=== PATIENT | female | born 1970 | race African-American/Black ===

== ENCOUNTER 2016-11-02 19:22 | Emergency (ER) | payer OTHER ==
[~2016-11-02 19:22] MED LIST: ALBU4TAB6 INH; ALPR2TAB2 PO; AZIT1PAC10 PO; BENZTROPINE; COGENTIN PO; CYMBALTA PO; FLUT1DIS3 IH; HYDR-519 PO; LISINOPRIL PO; MED4 PO; P20 PO; QVAR INHALER PO; RISPERIDONE PO; SANDOZ; TRAZ-132 PO
== END 2016-11-02 23:24 | disposition left against medical advice (07) ==
LOC: ER 23:19
DX: R56.9 Unspecified convulsions (principal); Z53.21 Procedure and treatment not carried out due to patient leaving prior to being seen by health care provider

== ENCOUNTER 2016-11-20 19:11 | Inpatient (IN) | payer OTHER ==
[~2016-11-20] VITALS: Ht 162.6 cm; Wt 136.1 kg
[2016-11-20 20:47] LABS: BASOPHILS % 0.6 % (0.0-2.0); EOSINOPHILS % 1.9 % (0.0-5.0); HEMATOCRIT. 36.5 % (36.0-48.0); HEMOGLOBIN. 11.6 g/dL (12.0-16.0); LYMPHOCYTES % 22.3 % (20.0-50.0); MEAN CORPUSCULAR HEMOGLOBIN 25.6 pg (28.0-32.0); MEAN CORPUSCULAR HGB CONC 31.9 g/dL (31.0-37.0); MEAN CORPUSCULAR VOLUME 80.5 fL (81.0-99.0); MONOCYTES % 6.2 % (2.0-8.0); PLATELET 356 x1000/uL (130-400); RED BLOOD CELL COUNT 4.53 mill/uL (4.2-5.4); RED CELL DISTRIBUTION WIDTH 15.8 % (11.6-14.6); WHITE BLOOD COUNT 11.8 x1000/uL (4.5-11.0)
[2016-11-20 20:59] LABS: HCG SCREEN NEGATIVE
[2016-11-20 21:01] LABS: ALANINE AMINOTRANSFERASE 15 IU/L (13-61); ALBUMIN 3.5 g/dL (3.4-5.0); ANION GAP 14; CALCIUM 9.3 mg/dL (8.5-10.1); CARBON DIOXIDE 28 mEq/L (21-32); CHLORIDE 103 mEq/L (98-107); ETHANOL BLOOD < 10 mg/dL; INDEX HEMOLYSI 1 (1-3); INDEX ICTERIC 1 (1-4); INDEX LIPEMIC 1 (1-3); UREA NITROGEN BLOOD 19 mg/dL (7-21); eGFR > 60 mL/min (>60)
[2016-11-20] MEDS ORDERED: DIPHENHYDRAMINE 50MG/ML VIAL IV PRN (23:15)
[2016-11-20] MEDS ORDERED: MAGNESIUM/ALUMINUM HYDROXIDE/SIMETHICONE 30ML UDC PO PRN (23:15)
[2016-11-20] MEDS ORDERED: ACETAMINOPHEN 325MG TABLET PO PRN (23:15)
[2016-11-20] MEDS ORDERED: LORAZEPAM 2MG/ML CPJ IV PRN (23:15)
[2016-11-20] MEDS ORDERED: CLONIDINE 0.1MG TABLET PO PRN (23:15)
[2016-11-20] MEDS ORDERED: ONDANSETRON HCL 4MG/2ML VIAL IV PRN (23:15)
[2016-11-20] MEDS ORDERED: LEVETIRACETAM 500MG PREMIX 100 ML IV NR (23:55)
[2016-11-21 03:45] VITALS: BP 120/73
[2016-11-21 04:13] VITALS: BP 120/73
[2016-11-21 08:00] VITALS: BP 103/66
[2016-11-21] MEDS: SODIUM CHLORIDE 0.9% 1,000 ML IV SCH ×3 (08:59→23:20)
[2016-11-21] MEDS ORDERED: LEVETIRACETAM 500 MG in SODIUM CHLORIDE 0.9% 100 ML IV SCH (09:00)
[2016-11-21] MEDS: IPRATROPIUM/ALBUTEROL 0.5-3(2.5)MG/3ML NEB HHN SCH ×3 (11:47→20:18)
[2016-11-21 12:00] VITALS: BP 116/79
[2016-11-21] MEDS ORDERED: ALPRAZOLAM 0.5 MG TABLET PO PRN (14:45)
[2016-11-21] MEDS: OMEPRAZOLE 20MG CAPSULE EXTENDED RELEASE PO SCH ×2 (15:23→20:53)
[2016-11-21 15:50] VITALS: BP 106/84
[2016-11-21] MEDS ORDERED: OMEPRAZOLE 20MG CAPSULE EXTENDED RELEASE PO SCH (16:00)
[2016-11-21] MEDS: SUCRALFATE 1 G/10 ML UDC PO SCH ×2 (17:00→20:53)
[2016-11-21] MEDS: LEVETIRACETAM 500 MG in SODIUM CHLORIDE 0.9% 100 ML IV SCH (17:01)
[2016-11-21 17:59] LABS: CLARITY URINE TURBID (CLEAR); COLOR URINE YELLOW (YELLOW); GLUCOSE URINE NEGATIVE (NEGATIVE); KETONES URINE NEGATIVE (NEGATIVE); LEUKOCYTE ESTERASE URINE 3+ (NEGATIVE); NITRITE URINE POSITIVE (NEGATIVE); OCCULT BLOOD URINE 1+ (NEGATIVE); PH URINE 6.5 (4.5-8.0); PROTEIN URINE NEGATIVE (NEGATIVE); SPECIFIC GRAVITY URINE 1.015 (1.005-1.030)
[2016-11-21 18:25] LABS: *AMPHETAMINES SCREEN URINE NEGATIVE (NEGATIVE); *BARBITURATES SCREEN URINE NEGATIVE (NEGATIVE); *BENZODIAZEPINES SCREEN URINE NEGATIVE (NEGATIVE); *COCAINE SCREEN URINE NEGATIVE (NEGATIVE); CANNABINOID URINE SCREEN NEGATIVE (NEGATIVE); ECSTASY MDMA SCREEN URINE NEGATIVE (NEGATIVE); METHADONE URINE SCREEN NEGATIVE (NEGATIVE); OPIATES URINE SCREEN NEGATIVE (NEGATIVE); PHENCYCLIDINE URINE SCREEN NEGATIVE (NEGATIVE)
[2016-11-21 18:54] LABS: BACTERIA URINE 4+; SQUAMOUS EPITHELIAL CELL URINE FEW /lpf (RARE/1+); WBC URINE TNTC /hpf (0-2)
[2016-11-21 20:00] VITALS: BP 101/68
[2016-11-21] MEDS ORDERED: RISPERIDONE 1MG TABLET PO SCH (21:00)
[2016-11-21] MEDS ORDERED: TRAMADOL 50MG TABLET PO PRN (21:15)
[2016-11-22] VITALS: BP 102/71
[2016-11-22] MEDS: IPRATROPIUM/ALBUTEROL 0.5-3(2.5)MG/3ML NEB HHN SCH ×5 (00:04→15:27)
[2016-11-22 04:00] VITALS: BP 102/65
[2016-11-22 06:14] LABS: HEMATOCRIT 30.4 % (36.0-48.0); HEMOGLOBIN 9.9 g/dL (12.0-16.0); MEAN CORPUSCULAR HGB CONC 32.6 g/dL (31.0-37.0); MEAN CORPUSCULAR VOLUME 79.8 fL (81.0-99.0); PLATELET 321 x1000/uL (130-400); RED BLOOD CELL COUNT 3.81 mill/uL (4.2-5.4); RED CELL DISTRIBUTION WIDTH 15.6 % (11.6-14.6)
[2016-11-22] MEDS: SUCRALFATE 1 G/10 ML UDC PO SCH ×2 (06:31→11:18)
[2016-11-22] MEDS: OMEPRAZOLE 20MG CAPSULE EXTENDED RELEASE PO SCH (06:32)
[2016-11-22] MEDS: LEVETIRACETAM 500 MG in SODIUM CHLORIDE 0.9% 100 ML IV SCH (06:32)
[2016-11-22 08:00] VITALS: BP 112/71
[2016-11-22] MEDS: SODIUM CHLORIDE 0.9% 1,000 ML IV SCH (08:53)
[2016-11-22] MEDS ORDERED: LEVOFLOXACIN 500MG TABLET PO SCH (11:00)
[2016-11-22 15:15] VITALS: BP 101/63
== END 2016-11-22 16:05 | disposition home or self-care (01) | DRG 53 ==
LOC: ER 19:11 → 8WST 23:11
PROVIDERS: ADMIT Internal Medicine; ATTEND Internal Medicine
DX: G40.901 Epilepsy, unspecified, not intractable, with status epilepticus (principal); G93.41 Metabolic encephalopathy; E11.9 Type 2 diabetes mellitus without complications; F31.9 Bipolar disorder, unspecified; I10 Essential (primary) hypertension; J45.909 Unspecified asthma, uncomplicated; K21.9 Gastro-esophageal reflux disease without esophagitis; K59.00 Constipation, unspecified; M06.9 Rheumatoid arthritis, unspecified; M79.7 Fibromyalgia; E66.01 Morbid (severe) obesity due to excess calories; M19.90 Unspecified osteoarthritis, unspecified site; F17.200 Nicotine dependence, unspecified, uncomplicated; Z68.43 Body mass index [BMI] 50.0-59.9, adult
CPT/HCPCS: 36415; 70450; 80053; 80305; 81001; 82270; 84703; 85025; 85027; 87077; 87086; 87186; 94640; 99285; G0482; J1953; J7030; J7050; J7620

== ENCOUNTER 2019-05-19 10:58 | Inpatient (IN) | payer MEDICAID ==
[~2019-05-19] VITALS: Ht 162.6 cm; Wt 117.0 kg
[~2019-05-19 10:58] MED LIST changes: +KEPP500 MT; -TRAZ-132 PO; +TRAZ-213 PO
[2019-05-19] MEDS ORDERED: SODIUM CHLORIDE 0.9% 1,000 ML IV ONE (11:37)
[2019-05-19 12:22] LABS: BASOPHILS % 0.7 % (0.0-2.0); EOSINOPHILS % 2.6 % (0.0-5.0); HEMATOCRIT. 35.7 % (36.0-48.0); HEMOGLOBIN. 11.8 g/dL (12.0-16.0); LYMPHOCYTES % 25.2 % (20.0-50.0); MEAN CORPUSCULAR HEMOGLOBIN 28.4 pg (28.0-32.0); MEAN CORPUSCULAR VOLUME 85.6 fL (81.0-99.0); MEAN PLATELET VOLUME 7.3 fl (7.4-10.4); MONOCYTES % 8.6 % (2.0-8.0); NEUTROPHILS % 62.9 % (40.0-76.0); PLATELET 305 x1000/uL (130-400); RED BLOOD CELL COUNT 4.17 mill/uL (4.2-5.4); RED CELL DISTRIBUTION WIDTH 16.6 % (11.6-14.6)
[2019-05-19 12:30] LABS: PROTHROMBIN TIME 9.9 sec (9.6-11.0)
[2019-05-19 12:33] LABS: CHLORIDE 105 mEq/L (98-107)
[2019-05-19 14:03] LABS: CLARITY URINE CLEAR (CLEAR); COLOR URINE YELLOW (YELLOW); KETONES URINE NEGATIVE (NEGATIVE); LEUKOCYTE ESTERASE URINE TRACE (NEGATIVE); NITRITE URINE POSITIVE (NEGATIVE); OCCULT BLOOD URINE NEGATIVE (NEGATIVE); PH URINE 5.5 (4.5-8.0); PROTEIN URINE NEGATIVE (NEGATIVE); SPECIFIC GRAVITY URINE 1.011 (1.005-1.030); UROBILINOGEN URINE 0.2 E.U./dL (0.2-1.0)
[2019-05-19] MEDS ORDERED: CEFTRIAXONE 1 G PREMIX 50 ML IV ONE (15:00)
[2019-05-19 16:30] VITALS: BP 101/60
[2019-05-19] MEDS ORDERED: ACETAMINOPHEN 325MG TABLET PO PRN (17:30)
[2019-05-19] MEDS ORDERED: ONDANSETRON HCL 4MG/2ML INJ IV PRN (17:30)
[2019-05-19] MEDS: SODIUM CHLORIDE 0.9% 1,000 ML IV SCH (18:36)
[2019-05-19 20:00] VITALS: BP 97/62
[2019-05-19] MEDS ORDERED: ALPRAZOLAM 0.5 MG TABLET PO PRN (21:00)
[2019-05-19] MEDS ORDERED: ALBUTEROL (0.083%) 2.5MG/3ML NEB HHN PRN (21:00)
[2019-05-19] MEDS: TRAZODONE HCL 50MG TABLET PO SCH (21:32)
[2019-05-19] MEDS: HYDROCODONE/ACETAMINOPHEN 10/325MG TABLET PO PRN (21:32)
[2019-05-19] MEDS: ZOLPIDEM TARTRATE 5MG TABLET PO PRN (23:02)
[2019-05-20] MEDS: SODIUM CHLORIDE 0.9% 1,000 ML IV SCH (06:30)
[2019-05-20 07:49] LABS: BASOPHILS % 0.7 % (0.0-2.0); EOSINOPHILS % 2.4 % (0.0-5.0); HEMATOCRIT. 35.6 % (36.0-48.0); HEMOGLOBIN. 11.8 g/dL (12.0-16.0); LYMPHOCYTES % 24.2 % (20.0-50.0); MEAN CORPUSCULAR HEMOGLOBIN 28.3 pg (28.0-32.0); MEAN CORPUSCULAR VOLUME 85.1 fL (81.0-99.0); MEAN PLATELET VOLUME 7.3 fl (7.4-10.4); MONOCYTES % 9.2 % (2.0-8.0); NEUTROPHILS % 63.5 % (40.0-76.0); PLATELET 296 x1000/uL (130-400); RED BLOOD CELL COUNT 4.19 mill/uL (4.2-5.4); RED CELL DISTRIBUTION WIDTH 16.1 % (11.6-14.6)
[2019-05-20 07:52] LABS: CHLORIDE 108 mEq/L (98-107)
[2019-05-20 08:00] VITALS: BP 112/77
[2019-05-20] MEDS: LEVETIRACETAM 500MG TABLET PO SCH ×2 (08:28→16:44)
[2019-05-20] MEDS: BENZTROPINE MESYLATE 1MG TABLET PO SCH ×2 (08:28→16:44)
[2019-05-20] MEDS: DULOXETINE HCL 60MG DR CAPSULE PO SCH ×2 (08:28→16:44)
[2019-05-20] MEDS: BUDESONIDE 0.5MG/2ML NEB HHN SCH ×2 (08:45→15:36)
[2019-05-20 12:00] VITALS: BP 121/85
[2019-05-20] MEDS ORDERED: SUMATRIPTAN SUCCINATE 6MG/0.5ML VIAL SUBCUT SCH (13:30)
[2019-05-20 14:53] LABS: *AMPHETAMINES SCREEN URINE NEGATIVE (NEGATIVE); *BARBITURATES SCREEN URINE NEGATIVE (NEGATIVE); *COCAINE SCREEN URINE NEGATIVE (NEGATIVE); METHADONE URINE SCREEN NEGATIVE (NEGATIVE); OPIATES URINE SCREEN NEGATIVE (NEGATIVE)
[2019-05-20 14:54] LABS: CANNABINOID URINE SCREEN NEGATIVE (NEGATIVE); PHENCYCLIDINE URINE SCREEN NEGATIVE (NEGATIVE)
[2019-05-20] MEDS ORDERED: CEFTRIAXONE 1,000 MG in DEXTROSE 5% WATER 50 ML IV SCH (15:00)
[2019-05-20 15:11] LABS: *BENZODIAZEPINES SCREEN URINE PRESUMTIVE POSITIVE (NEGATIVE)
[2019-05-20 16:00] VITALS: BP_SYST 113; BP_SYST 116; BP_SYST 119; BP_DIAS 58; BP_DIAS 68; BP_DIAS 69
[2019-05-20 20:33] VITALS: BP_SYST 123; BP_SYST 124; BP_SYST 126; BP_DIAS 79; BP_DIAS 83; BP_DIAS 90
[2019-05-20 20:45] LABS: *BARBITURATES SCREEN URINE NEGATIVE (NEGATIVE); CANNABINOID URINE SCREEN NEGATIVE (NEGATIVE)
[2019-05-20 20:46] LABS: *AMPHETAMINES SCREEN URINE NEGATIVE (NEGATIVE); *BENZODIAZEPINES SCREEN URINE NEGATIVE (NEGATIVE); *COCAINE SCREEN URINE NEGATIVE (NEGATIVE); METHADONE URINE SCREEN NEGATIVE (NEGATIVE); OPIATES URINE SCREEN NEGATIVE (NEGATIVE); PHENCYCLIDINE URINE SCREEN NEGATIVE (NEGATIVE)
[2019-05-20] MEDS: HYDROCODONE/ACETAMINOPHEN 10/325MG TABLET PO PRN (20:54)
[2019-05-20] MEDS: TRAZODONE HCL 50MG TABLET PO SCH (20:54)
[2019-05-20] MEDS ORDERED: ATORVASTATIN CALCIUM 40MG TABLET PO SCH (21:00)
[2019-05-20] MEDS: ZOLPIDEM TARTRATE 5MG TABLET PO PRN (21:15)
[2019-05-20] MEDS ORDERED: ALPRAZOLAM 0.5 MG TABLET PO PRN (23:15)
[2019-05-21 00:29] VITALS: BP 118/86
[2019-05-21] MEDS: SODIUM CHLORIDE 0.9% 1,000 ML IV SCH (03:53)
[2019-05-21 04:00] VITALS: BP 100/54
[2019-05-21 07:40] LABS: BASOPHILS % 0.8 % (0.0-2.0); EOSINOPHILS % 2.1 % (0.0-5.0); HEMATOCRIT. 36.8 % (36.0-48.0); HEMOGLOBIN. 12.2 g/dL (12.0-16.0); LYMPHOCYTES % 20.7 % (20.0-50.0); MEAN CORPUSCULAR HEMOGLOBIN 28.1 pg (28.0-32.0); MEAN CORPUSCULAR VOLUME 84.7 fL (81.0-99.0); MONOCYTES % 10.2 % (2.0-8.0); NEUTROPHILS % 66.2 % (40.0-76.0); PLATELET 310 x1000/uL (130-400); RED BLOOD CELL COUNT 4.35 mill/uL (4.2-5.4); RED CELL DISTRIBUTION WIDTH 16.3 % (11.6-14.6)
[2019-05-21 08:00] VITALS: BP 131/89
[2019-05-21 08:21] LABS: CHLORIDE 107 mEq/L (98-107)
[2019-05-21] MEDS: BUDESONIDE 0.5MG/2ML NEB HHN SCH (08:23)
[2019-05-21] MEDS: HYDROCODONE/ACETAMINOPHEN 10/325MG TABLET PO PRN (08:26)
[2019-05-21] MEDS: BENZTROPINE MESYLATE 1MG TABLET PO SCH (08:27)
[2019-05-21] MEDS: DULOXETINE HCL 60MG DR CAPSULE PO SCH (08:27)
[2019-05-21] MEDS: LEVETIRACETAM 500MG TABLET PO SCH (08:27)
[2019-05-21 08:38] LABS: CREATINE KINASE MB FRACTION < 1.0 ng/mL (0.5-3.6); LDL CHOLESTEROL 144 mg/dL (5-100)
[2019-05-21 08:40] LABS: CREATINE KINASE 86 IU/L (26-192); HDL CHOLESTEROL 98 mg/dL (40-59)
[2019-05-21 12:00] VITALS: BP 156/110
[2019-05-21 12:54] VITALS: BP 156/100
== END 2019-05-21 14:01 | disposition home or self-care (01) | DRG 720 ==
LOC: ER 10:58 → 7WST 14:47 → ENRESERV 15:37
PROVIDERS: ADMIT Internal Medicine; ATTEND Internal Medicine
DX: A41.9 Sepsis, unspecified organism (principal); R65.21 Severe sepsis with septic shock; E11.42 Type 2 diabetes mellitus with diabetic polyneuropathy; E44.1 Mild protein-calorie malnutrition; E78.5 Hyperlipidemia, unspecified; F17.210 Nicotine dependence, cigarettes, uncomplicated; F41.9 Anxiety disorder, unspecified; G40.909 Epilepsy, unspecified, not intractable, without status epilepticus; G47.33 Obstructive sleep apnea (adult) (pediatric); I10 Essential (primary) hypertension; J45.909 Unspecified asthma, uncomplicated; M79.7 Fibromyalgia; N39.0 Urinary tract infection, site not specified; G90.8 Other disorders of autonomic nervous system; E78.00 Pure hypercholesterolemia, unspecified; F32.9 Major depressive disorder, single episode, unspecified; E66.9 Obesity, unspecified; Z68.41 Body mass index [BMI] 40.0-44.9, adult; Z79.51 Long term (current) use of inhaled steroids; Z79.899 Other long term (current) drug therapy; Z88.0 Allergy status to penicillin; Z91.041 Radiographic dye allergy status; Z71.3 Dietary counseling and surveillance
CPT/HCPCS: 36415; 71045; 80048; 80061; 80305; 81003; 82550; 82553; 82962; 83605; 83735; 84145; 84443; 84484; 85379; 87077; 87186; 93005; 93306; 93970; 94640; 99285; C1893; J0696; J3030; J7030; J7060; J7611; J7626

== ENCOUNTER 2019-05-25 16:01 | Inpatient (IN) | payer MEDICAID ==
[~2019-05-25] VITALS: Ht 172.7 cm; Wt 111.1 kg
[~2019-05-25 16:01] MED LIST changes: -AZIT1PAC10 PO; -MED4 PO; -P20 PO; -SANDOZ
[2019-05-25] MEDS ORDERED: METHYLPREDNISOLONE SOD SUCC 125 MG/2 ML VIAL IV STA (16:50)
[2019-05-25] MEDS ORDERED: ALBUTEROL (0.083%) 2.5MG/3ML NEB HHN STA (16:50)
[2019-05-25 17:41] LABS: BASOPHILS % 0.5 % (0.0-2.0); HEMATOCRIT. 36.1 % (36.0-48.0); HEMOGLOBIN. 11.8 g/dL (12.0-16.0); MEAN CORPUSCULAR HEMOGLOBIN 28.2 pg (28.0-32.0); MEAN CORPUSCULAR VOLUME 86.2 fL (81.0-99.0); MONOCYTES % 8.5 % (2.0-8.0); PLATELET 278 x1000/uL (130-400); RED BLOOD CELL COUNT 4.18 mill/uL (4.2-5.4); RED CELL DISTRIBUTION WIDTH 16.3 % (11.6-14.6)
[2019-05-25 17:47] LABS: CHLORIDE 108 mEq/L (98-107)
[2019-05-25 17:51] LABS: ETHANOL BLOOD < 10 mg/dL
[2019-05-25 20:19] LABS: *AMPHETAMINES SCREEN URINE NEGATIVE (NEGATIVE); *BARBITURATES SCREEN URINE NEGATIVE (NEGATIVE); *COCAINE SCREEN URINE NEGATIVE (NEGATIVE); METHADONE URINE SCREEN NEGATIVE (NEGATIVE); OPIATES URINE SCREEN NEGATIVE (NEGATIVE)
[2019-05-25 20:20] LABS: *BENZODIAZEPINES SCREEN URINE PRESUMTIVE POSITIVE (NEGATIVE); CANNABINOID URINE SCREEN NEGATIVE (NEGATIVE); PHENCYCLIDINE URINE SCREEN NEGATIVE (NEGATIVE)
[2019-05-25 21:15] VITALS: BP 101/57
[2019-05-25 21:30] VITALS: BP 101/57
[2019-05-26] VITALS (7 sets, daily range): BP systolic 91–121; BP diastolic 51–74
[2019-05-26] MEDS ORDERED: IPRATROPIUM/ALBUTEROL 0.5-3(2.5)MG/3ML NEB HHN PRN (01:30)
[2019-05-26] MEDS ORDERED: DEXTROSE 50% WATER 50ML SYRINGE IV PRN (01:30)
[2019-05-26] MEDS ORDERED: MELO-104 MT (01:40)
[2019-05-26] MEDS ORDERED: GABA-531 MT (01:40)
[2019-05-26] MEDS ORDERED: METF-815 MT (01:40)
[2019-05-26 03:15] LABS: CREATINE KINASE 118 IU/L (26-192)
[2019-05-26 03:16] LABS: CREATINE KINASE MB FRACTION < 1.0 ng/mL (0.5-3.6)
[2019-05-26] MEDS: INSULIN LISPRO 100 UNITS/ML SUBCUT SCH ×4 (07:33→21:00)
[2019-05-26] MEDS: BLOOD SUGAR DIAGNOSTIC STRIP TEST SCH ×4 (07:33→21:00)
[2019-05-26] MEDS ORDERED: MEDICATION NOT ON FORMULARY EA (Metformin HCl (Metformin HCl ER) 1 TAB) MT SCH (07:40)
[2019-05-26] MEDS ORDERED: METFORMIN HCL 500MG TABLET PO SCH (07:45)
[2019-05-26] MEDS: LEVETIRACETAM 500MG TABLET PO SCH ×2 (08:05→20:59)
[2019-05-26] MEDS: MELOXICAM 7.5MG TABLET PO SCH (08:05)
[2019-05-26] MEDS: GABAPENTIN 300MG CAPSULE PO SCH (08:06)
[2019-05-26] MEDS ORDERED: LISINOPRIL 10 MG PO SCH (09:00)
[2019-05-26] MEDS ORDERED: LISINOPRIL 10MG TABLET PO SCH (09:00)
[2019-05-26] MEDS: METHYLPREDNISOLONE SOD SUCC 40 MG/ML VIAL IV SCH ×2 (10:30→18:13)
[2019-05-26] MEDS ORDERED: INFLUENZA VIRUS VACCINE(AFLURIA) 0.5ML SYR IM ONE (12:00)
[2019-05-26] MEDS: SODIUM CHLORIDE 0.45% 1,000 ML IV SCH ×2 (13:23→23:00)
[2019-05-26] MEDS: ENOXAPARIN 30MG/0.3ML SYR SUBCUT SCH (18:14)
[2019-05-26] MEDS: PHENYTOIN SODIUM EXTENDED 100MG CAPSULE PO SCH (20:59)
[2019-05-26] MEDS ORDERED: TRAZODONE HCL 50MG TABLET PO SCH (21:00)
[2019-05-26] MEDS ORDERED: TRAZODONE HCL 300 MG PO SCH (21:00)
[2019-05-27] VITALS: BP 107/63
[2019-05-27 04:00] VITALS: BP 100/65
[2019-05-27] MEDS: METHYLPREDNISOLONE SOD SUCC 40 MG/ML VIAL IV SCH (04:42)
[2019-05-27] MEDS: ENOXAPARIN 30MG/0.3ML SYR SUBCUT SCH (06:02)
[2019-05-27] MEDS: INSULIN LISPRO 100 UNITS/ML SUBCUT SCH (06:05)
[2019-05-27] MEDS: BLOOD SUGAR DIAGNOSTIC STRIP TEST SCH (06:05)
[2019-05-27 07:25] LABS: BASOPHILS % 0.4 % (0.0-2.0); HEMATOCRIT. 35.9 % (36.0-48.0); HEMOGLOBIN. 11.7 g/dL (12.0-16.0); LYMPHOCYTES % 11.7 % (20.0-50.0); MEAN CORPUSCULAR HEMOGLOBIN 27.8 pg (28.0-32.0); MEAN CORPUSCULAR VOLUME 84.9 fL (81.0-99.0); MEAN PLATELET VOLUME 7.8 fl (7.4-10.4); MONOCYTES % 6.1 % (2.0-8.0); NEUTROPHILS % 81.8 % (40.0-76.0); PLATELET 332 x1000/uL (130-400); RED BLOOD CELL COUNT 4.23 mill/uL (4.2-5.4); RED CELL DISTRIBUTION WIDTH 16.3 % (11.6-14.6)
[2019-05-27 07:50] LABS: CHLORIDE 107 mEq/L (98-107)
[2019-05-27 08:00] VITALS: BP 104/77
[2019-05-27 08:07] LABS: CHLORIDE 108 mEq/L (98-107)
[2019-05-27] MEDS: PHENYTOIN SODIUM EXTENDED 100MG CAPSULE PO SCH (09:00)
[2019-05-27] MEDS: SODIUM CHLORIDE 0.45% 1,000 ML IV SCH (09:00)
[2019-05-27] MEDS ORDERED: LISINOPRIL 2.5MG TABLET PO SCH (09:00)
[2019-05-27] MEDS ORDERED: PHENYTOIN SODIUM 1,000 MG in SODIUM CHLORIDE 0.9% 100 ML IV SCH (09:00)
[2019-05-27] MEDS: GABAPENTIN 300MG CAPSULE PO SCH (09:35)
[2019-05-27] MEDS: MELOXICAM 7.5MG TABLET PO SCH (09:35)
[2019-05-27] MEDS: LEVETIRACETAM 500MG TABLET PO SCH (09:35)
== END 2019-05-27 10:15 | disposition left against medical advice (07) | DRG 141 ==
LOC: ER 16:01 → 8WST 19:22 → EDBEDREQ 19:27 → ENRESERV 19:59
PROVIDERS: ADMIT Internal Medicine; ATTEND Internal Medicine
PROC: 4A00X4Z Measurement of Central Nervous Electrical Activity, External Approach (ICD-10-PCS; principal; 2019-05-27)
DX: J45.901 Unspecified asthma with (acute) exacerbation (principal); E11.42 Type 2 diabetes mellitus with diabetic polyneuropathy; S09.90XA Unspecified injury of head, initial encounter; G40.909 Epilepsy, unspecified, not intractable, without status epilepticus; E44.1 Mild protein-calorie malnutrition; S01.511A Laceration without foreign body of lip, initial encounter; E78.00 Pure hypercholesterolemia, unspecified; I10 Essential (primary) hypertension; M79.7 Fibromyalgia; R26.9 Unspecified abnormalities of gait and mobility; W22.03XA Walked into furniture, initial encounter; M06.9 Rheumatoid arthritis, unspecified; W18.39XA Other fall on same level, initial encounter; I25.10 Atherosclerotic heart disease of native coronary artery without angina pectoris; G47.33 Obstructive sleep apnea (adult) (pediatric); F32.9 Major depressive disorder, single episode, unspecified; F41.9 Anxiety disorder, unspecified; R63.4 Abnormal weight loss; Z88.0 Allergy status to penicillin; Z88.9 Allergy status to unspecified drugs, medicaments and biological substances; Y93.89 Activity, other specified; Y92.89 Other specified places as the place of occurrence of the external cause; Y99.8 Other external cause status; Z79.899 Other long term (current) drug therapy
CPT/HCPCS: 36415; 71045; 80048; 80185; 80305; 80320; 82542; 82550; 82553; 82962; 83880; 84484; 90686; 93005; 93880; 94640; 97162; 99285; J1165; J1650; J2920; J2930; J7050; J7611; J7620; G0480

== ENCOUNTER 2021-09-14 15:47 | Emergency (ER) | payer MEDICAID ==
[~2021-09-14] VITALS: Ht 165.1 cm; Wt 130.0 kg
[~2021-09-14 15:47] MED LIST changes: +GABA-532 MT; +MELO-104 MT; +METF-873 MT; -TRAZ-213 PO; +TRAZ-252 PO
[2021-09-14] MEDS ORDERED: HALOPERIDOL LACTATE 5MG/ML VIAL IM ONE (16:45)
[2021-09-14] MEDS ORDERED: FLUORESCEIN SODIUM 1MG/STRIP BOTHEYE ONE (16:45)
[2021-09-14 16:59] LABS: CLARITY URINE CLEAR (CLEAR); COLOR URINE YELLOW (YELLOW); KETONES URINE NEGATIVE (NEGATIVE); LEUKOCYTE ESTERASE URINE NEGATIVE (NEGATIVE); NITRITE URINE NEGATIVE (NEGATIVE); OCCULT BLOOD URINE NEGATIVE (NEGATIVE); PROTEIN URINE NEGATIVE (NEGATIVE); SPECIFIC GRAVITY URINE 1.008 (1.005-1.030); UROBILINOGEN URINE 0.2 E.U./dL (0.2-1.0)
[2021-09-14 17:01] LABS: BASOPHILS % 0.6 % (0.0-2.0); EOSINOPHILS % 2.6 % (0.0-5.0); HEMATOCRIT. 44.9 % (36.0-48.0); HEMOGLOBIN. 14.6 g/dL (12.0-16.0); MEAN CORPUSCULAR HEMOGLOBIN 27.2 pg (28.0-32.0); MEAN CORPUSCULAR VOLUME 83.8 fL (81.0-99.0); MEAN PLATELET VOLUME 7.6 fl (7.4-10.4); MONOCYTES % 6.3 % (2.0-8.0); NEUTROPHILS % 69.5 % (40.0-76.0); PLATELET 358 x1000/uL (130-400); RED BLOOD CELL COUNT 5.36 mill/uL (4.2-5.4); RED CELL DISTRIBUTION WIDTH 15.7 % (11.6-14.6)
[2021-09-14 17:03] LABS: CHLORIDE 107 mEq/L (98-107)
[2021-09-14] MEDS ORDERED: IBUPROFEN 400MG TABLET PO ONE (18:45)
[2021-09-14] MEDS ORDERED: ACETAMINOPHEN 325MG TABLET PO ONE (18:45)
[2021-09-14] MEDS ORDERED: ALBU2.5V13 IH (19:40)
[2021-09-14] MEDS ORDERED: ALBU18HF2 INH (19:40)
[2021-09-14] MEDS ORDERED: URIN1STR MC (19:41)
[2021-09-14 20:21] VITALS: BP 132/96
== END 2021-09-14 20:32 | disposition home or self-care (01) ==
LOC: ER 15:47
DX: M54.9 Dorsalgia, unspecified (principal); J45.909 Unspecified asthma, uncomplicated; I10 Essential (primary) hypertension; E11.9 Type 2 diabetes mellitus without complications; Z88.0 Allergy status to penicillin; Z79.899 Other long term (current) drug therapy; Z86.59 Personal history of other mental and behavioral disorders
CPT/HCPCS: 36415; 71045; 72100; 73502; 73590; 80048; 81003; 85025; 93005; 96372; 99285; J1630

== ENCOUNTER 2022-12-28 18:57 | Emergency (ER) | payer MEDICAID, OTHER ==
[~2022-12-28] VITALS: Ht 162.6 cm; Wt 64.0 kg
[~2022-12-28 18:57] MED LIST changes: +ALBU18HF2 INH; +ALBU2.5V13 IH; +URIN1STR MC
[2022-12-28] MEDS ORDERED: KETOROLAC 60MG/2ML VIAL IM ONE (19:00)
[2022-12-28 19:48] LABS: BASOPHILS % 0.6 % (0.0-2.0); EOSINOPHILS % 1.6 % (0.0-5.0); HEMATOCRIT. 42.6 % (36.0-48.0); HEMOGLOBIN. 14.1 g/dL (12.0-16.0); LYMPHOCYTES % 16.6 % (20.0-50.0); MEAN CORPUSCULAR VOLUME 84.6 fL (81.0-99.0); MEAN PLATELET VOLUME 7.3 fl (7.4-10.4); MONOCYTES % 7.7 % (2.0-8.0); NEUTROPHILS % 73.5 % (40.0-76.0); PLATELET 334 x1000/uL (130-400); RED BLOOD CELL COUNT 5.03 mill/uL (4.2-5.4); RED CELL DISTRIBUTION WIDTH 16.5 % (11.6-14.6)
[2022-12-28 20:02] LABS: INR 0.9; PROTHROMBIN TIME 9.9 sec (9.6-11.0)
[2022-12-28 20:29] LABS: CHLORIDE 105 mEq/L (98-107)
[2022-12-28] MEDS ORDERED: IBUP-2029 MT (23:07)
[2022-12-28 23:12] VITALS: BP 120/80
== END 2022-12-28 23:20 | disposition home or self-care (01) ==
LOC: ER 18:57
DX: R10.12 Left upper quadrant pain (principal); J45.909 Unspecified asthma, uncomplicated; E11.9 Type 2 diabetes mellitus without complications; I10 Essential (primary) hypertension; Z79.899 Other long term (current) drug therapy; Z79.84 Long term (current) use of oral hypoglycemic drugs; Z88.0 Allergy status to penicillin; Z88.8 Allergy status to other drugs, medicaments and biological substances
CPT/HCPCS: 36415; 74176; 80053; 85025; 85610; 96372; 99285; J1885

== ENCOUNTER 2022-12-31 02:30 | Emergency (ER) | payer OTHER ==
[~2022-12-31] VITALS: Ht 162.6 cm; Wt 118.0 kg
[~2022-12-31 02:30] MED LIST changes: +IBUP-2029 MT
[2022-12-31] MEDS ORDERED: MORPHINE SULFATE 4 MG/ML CPJ (NOT FOR IM USE) IV STA (06:29)
[2022-12-31] MEDS ORDERED: KETOROLAC 30MG/ML VIAL IV STA (06:29)
[2022-12-31] MEDS ORDERED: ONDANSETRON HCL 4MG/2ML INJ IV STA (06:29)
[2022-12-31 07:01] LABS: BASOPHILS % 0.7 % (0.0-2.0); EOSINOPHILS % 2.2 % (0.0-5.0); HEMATOCRIT. 38.2 % (36.0-48.0); HEMOGLOBIN. 12.5 g/dL (12.0-16.0); LYMPHOCYTES % 23.1 % (20.0-50.0); MEAN CORPUSCULAR HEMOGLOBIN 27.8 pg (28.0-32.0); MEAN CORPUSCULAR VOLUME 85.1 fL (81.0-99.0); MEAN PLATELET VOLUME 7.2 fl (7.4-10.4); MONOCYTES % 8.8 % (2.0-8.0); NEUTROPHILS % 65.2 % (40.0-76.0); PLATELET 288 x1000/uL (130-400); RED BLOOD CELL COUNT 4.49 mill/uL (4.2-5.4); RED CELL DISTRIBUTION WIDTH 16.6 % (11.6-14.6)
[2022-12-31 07:07] LABS: CHLORIDE 111 mEq/L (98-107)
[2022-12-31] MEDS ORDERED: KETOROLAC 15MG/ML VIAL IV NR (08:30)
[2022-12-31] MEDS ORDERED: ONDANSETRON HCL 4MG/2ML INJ IV NR (08:31)
[2022-12-31 08:32] LABS: CLARITY URINE CLEAR (CLEAR); COLOR URINE YELLOW (YELLOW); KETONES URINE NEGATIVE (NEGATIVE); LEUKOCYTE ESTERASE URINE TRACE (NEGATIVE); NITRITE URINE NEGATIVE (NEGATIVE); OCCULT BLOOD URINE NEGATIVE (NEGATIVE); PH URINE 5.5 (4.5-8.0); PROTEIN URINE NEGATIVE (NEGATIVE); SPECIFIC GRAVITY URINE 1.023 (1.005-1.030)
[2022-12-31] MEDS ORDERED: MORPHINE SULFATE 4 MG/ML CPJ (NOT FOR IM USE) IV NR (08:45)
[2022-12-31 08:57] LABS: *AMPHETAMINES SCREEN URINE NEGATIVE (NEGATIVE); *BARBITURATES SCREEN URINE NEGATIVE (NEGATIVE); *BENZODIAZEPINES SCREEN URINE NEGATIVE (NEGATIVE); *COCAINE SCREEN URINE NEGATIVE (NEGATIVE); CANNABINOID URINE SCREEN PRESUMTIVE POSITIVE (NEGATIVE); METHADONE URINE SCREEN NEGATIVE (NEGATIVE); OPIATES URINE SCREEN NEGATIVE (NEGATIVE); PHENCYCLIDINE URINE SCREEN NEGATIVE (NEGATIVE)
[2022-12-31] MEDS ORDERED: MORPHINE SULFATE 4 MG/ML CPJ (NOT FOR IM USE) IV ONE ×2 (10:45→14:15)
[2022-12-31] MEDS ORDERED: SILVER SULFADIAZINE 1% CREAM 25GM TOP ONE (13:00)
[2022-12-31] MEDS ORDERED: ACETAMINOPHEN 325MG TABLET PO ONE (18:15)
[2022-12-31 18:26] VITALS: BP 103/66
== END 2022-12-31 18:55 | disposition short-term general hospital (02) ==
LOC: ER 02:30
DX: N28.9 Disorder of kidney and ureter, unspecified (principal); R10.9 Unspecified abdominal pain; J45.909 Unspecified asthma, uncomplicated; M19.90 Unspecified osteoarthritis, unspecified site; F31.9 Bipolar disorder, unspecified; F17.210 Nicotine dependence, cigarettes, uncomplicated; Z20.822 Contact with and (suspected) exposure to COVID-19; Z88.0 Allergy status to penicillin; Z88.8 Allergy status to other drugs, medicaments and biological substances
CPT/HCPCS: 36415; 76770; 80053; 80305; 81003; 82962; 85025; 87086; 87426; 96374; 96375; 96376; 99285; C9803; J1885; J2270; J2405; Z7610

== ENCOUNTER 2023-02-25 | Emergency (ER) | payer OTHER ==
[~2023-02-25] VITALS: Ht 175.3 cm; Wt 96.0 kg
[2023-02-25 00:06] VITALS: TEMP 97.9; O2SAT 98
[2023-02-25 01:48] LABS: BASOPHILS % 0.6 % (0.0-2.0); EOSINOPHILS % 1.7 % (0.0-5.0); HEMATOCRIT. 43.1 % (36.0-48.0); MEAN CORPUSCULAR HEMOGLOBIN 27.7 pg (28.0-32.0); MEAN CORPUSCULAR VOLUME 85.2 fL (81.0-99.0); MEAN PLATELET VOLUME 7.2 fl (7.4-10.4); MONOCYTES % 7.4 % (2.0-8.0); NEUTROPHILS % 72.3 % (40.0-76.0); PLATELET 339 x1000/uL (130-400); RED BLOOD CELL COUNT 5.06 mill/uL (4.2-5.4); RED CELL DISTRIBUTION WIDTH 15.5 % (11.6-14.6)
[2023-02-25 01:56] LABS: CHLORIDE 104 mEq/L (98-107)
[2023-02-25 02:07] LABS: HCG SCREEN NEGATIVE
[2023-02-25 03:15] VITALS: BP 132/92; PULSE 90; RESP 16
[2023-02-25] MEDS ORDERED: KETOROLAC 30MG/ML VIAL IV ONE (03:15)
[2023-02-25] MEDS ORDERED: PROT20 MT (05:39)
== END 2023-02-25 06:50 | disposition home or self-care (01) ==
LOC: ER
DX: R10.9 Unspecified abdominal pain (principal); J45.909 Unspecified asthma, uncomplicated; E11.9 Type 2 diabetes mellitus without complications; I10 Essential (primary) hypertension; M79.7 Fibromyalgia; Z79.899 Other long term (current) drug therapy
CPT/HCPCS: 80053; 84703; 85025; 36415; 74176; 96374; 99285; J1885; Z7610 ×2

== ENCOUNTER 2023-09-26 17:37 | Emergency (ER) | payer OTHER ==
[~2023-09-26] VITALS: Ht 162.6 cm; Wt 118.0 kg
[~2023-09-26 17:37] MED LIST changes: +PROT20 MT
[2023-09-26 17:40] VITALS: O2SAT 97
[2023-09-26] MEDS: LIDOCAINE HCL/PF 1% 10 MG/ML 5ML VIAL INFIL ONE (18:37)
[2023-09-26] MEDS: BACITRACIN ZINC OINT UDPKT TOP ONE (18:37)
[2023-09-26] MEDS: TETANUS, DIPHTHERIA, PERTUSSIS VAC/PF 0.5ML (>10YR OLD) IM ONE (18:44)
[2023-09-26] MEDS ORDERED: BO1 TP (19:33)
[2023-09-26] MEDS ORDERED: ACET-2708 MT (19:33)
[2023-09-26] MEDS: ACETAMINOPHEN 325MG TABLET PO ONE (19:55)
[2023-09-26] MEDS: KETOROLAC 30MG/ML VIAL IM ONE (19:55)
[2023-09-26 19:58] VITALS: BP 128/80; PULSE 90; RESP 18; TEMP 98.3
== END 2023-09-26 20:00 ==
LOC: ER 17:37
DX: S41.112A Laceration without foreign body of left upper arm, initial encounter (principal); S50.12XA Contusion of left forearm, initial encounter; J45.909 Unspecified asthma, uncomplicated; E11.9 Type 2 diabetes mellitus without complications; I10 Essential (primary) hypertension; M79.7 Fibromyalgia; Z79.899 Other long term (current) drug therapy; W18.39XA Other fall on same level, initial encounter; Y93.89 Activity, other specified; Y92.89 Other specified places as the place of occurrence of the external cause; Y99.8 Other external cause status
CPT/HCPCS: 73090; 90715; 90471; 96372; 99284; J1885; J3490; Z7610 ×3

== ENCOUNTER 2023-12-08 02:11 | Emergency (ER) | payer OTHER ==
[~2023-12-08] VITALS: Ht 167.6 cm; Wt 125.0 kg
[~2023-12-08 02:11] MED LIST changes: +ACET-2708 MT; +ALBU18HF2 IH; -ALBU18HF2 INH; -ALBU2.5V13 IH; +BO1 TP; -FLUT1DIS3 IH; +FLUT1DIS3 INH; +LINA72CA PO; +P20 MT; +SIMV-43 PO
[2023-12-08] MEDS ORDERED: IPRATROPIUM BROMIDE (0.02%) 0.5MG/2.5ML NEB HHN STA (02:56)
[2023-12-08] MEDS ORDERED: ALBUTEROL (0.083%) 2.5MG/3ML NEB HHN STA (02:56)
[2023-12-08 03:45] LABS: BASOPHILS % 0.8 % (0.0-2.0); EOSINOPHILS % 0.9 % (0.0-5.0); HEMATOCRIT. 41.4 % (36.0-48.0); HEMOGLOBIN. 13.2 g/dL (12.0-16.0); LYMPHOCYTES % 22.6 % (20.0-50.0); MEAN CORPUSCULAR HEMOGLOBIN 28.3 pg (28.0-32.0); MEAN CORPUSCULAR HGB CONC 31.9 g/dL (31.0-37.0); MEAN CORPUSCULAR VOLUME 88.8 fL (81.0-99.0); MEAN PLATELET VOLUME 7.6 fl (7.4-10.4); MONOCYTES % 6.2 % (2.0-8.0); NEUTROPHILS % 69.5 % (40.0-76.0); PLATELET 283 x1000/uL (130-400); RED BLOOD CELL COUNT 4.66 mill/uL (4.2-5.4); RED CELL DISTRIBUTION WIDTH 17.1 % (11.6-14.6); WHITE BLOOD COUNT 14.4 x1000/uL (4.5-11.0)
[2023-12-08] MEDS: METHYLPREDNISOLONE SOD SUCC 125MG/2ML (ACT-O-VIAL) IV STA (03:48)
[2023-12-08] MEDS: MAGNESIUM 2 G PREMIX 50 ML IV ONE (03:49)
[2023-12-08 03:53] LABS: CHLORIDE 106 mEq/L (98-107); SODIUM 141 mEq/L (136-145)
[2023-12-08 03:54] LABS: CALCIUM 8.6 mg/dL (8.7-10.4); CARBON DIOXIDE 30 mEq/L (21-32)
[2023-12-08 03:59] LABS: CREATININE 0.9 mg/dL (0.6-1.0); GLUCOSE 160 mg/dL (70-105); UREA NITROGEN BLOOD 20 mg/dL (9-23)
[2023-12-08 04:00] LABS: LACTIC ACID 2.2 mmol/L (0.4-2.0); TROPONIN I HIGH SENSITIVITY 4 ng/L (3.0-34)
[2023-12-08 04:01] LABS: ALANINE AMINOTRANSFERASE 28 IU/L (10-49); ALBUMIN 4.1 g/dL (3.2-4.8); ASPARTATE AMINOTRANSFERASE 18 IU/L (<34); BILIRUBIN TOTAL 0.4 mg/dL (0.1-1.0); PROTEIN TOTAL 6.9 g/dL (6.0-8.3)
[2023-12-08 04:50] VITALS: PULSE 92; RESP 18; O2SAT 98
[2023-12-08] MEDS: ALBUTEROL (0.083%) 2.5MG/3ML NEB HHN NR (04:52)
[2023-12-08] MEDS: IPRATROPIUM BROMIDE (0.02%) 0.5MG/2.5ML NEB HHN NR (04:52)
[2023-12-08] MEDS: ACETAMINOPHEN 325MG TABLET PO ONE (04:59)
[2023-12-08 09:30] VITALS: BP 134/76; PULSE 84; RESP 12; TEMP 97.6
== END 2023-12-08 09:55 | disposition short-term general hospital (02) ==
LOC: ER 02:11 → CANBEDREQ 12-10 18:03
DX: J44.9 Chronic obstructive pulmonary disease, unspecified (principal); M79.662 Pain in left lower leg; M79.661 Pain in right lower leg; E11.9 Type 2 diabetes mellitus without complications; I10 Essential (primary) hypertension; E03.9 Hypothyroidism, unspecified; F10.20 Alcohol dependence, uncomplicated; Z88.0 Allergy status to penicillin; Z91.040 Latex allergy status; Y90.9 Presence of alcohol in blood, level not specified
CPT/HCPCS: 80053; 82962; 83880; 83605; 85025; 85379; 84484; 36415; 71045; 93970; 94640; 93005; 96365; 96366; 96375; 99285; J3475; J2930; Z7610 ×3